=== PATIENT | male | born 1955 | race Caucasian/White ===

== ENCOUNTER 2017-08-01 23:09 | Emergency (ER) | payer OTHER ==
[~2017-08-01] VITALS: Ht 175.3 cm; Wt 54.4 kg
[2017-08-01 23:10] VITALS: BP_SYST 142
[2017-08-01] MEDS ORDERED: NACL 0.9% 1,000 ML IV ONE (23:30)
[2017-08-01 23:49] LABS: HEMATOCRIT 36.1 % (36-54); HEMOGLOBIN 12.3 g/dL (14.0-18.0); MEAN CORPUSCULAR HEMOGLOBIN 30 pg (27-31); MEAN CORPUSCULAR HGB CONC 34 % (32-36); MEAN CORPUSCULAR VOLUME 88 fL (79.0-98.0); RED CELL DISTRIBUTION WIDTH 13.4 % (9.0-15.0)
[2017-08-02 00:02] LABS: CALCIUM 8.6 mg/dL (8.4-11.0); CREATININE 1.71 mg/dL (0.55-1.30); POTASSIUM 3.8 mmol/L (3.5-5.1)
[2017-08-02 00:03] LABS: INR 1.1 (0.80-1.20); PROTHROMBIN TIME 11.5 SECS (9.5-12.5)
[2017-08-02 00:36] LABS: TOTAL BILIRUBIN 4.1 mg/dL (0.0-1.0)
[2017-08-02 00:37] LABS: FREE T4 (FREE THYROXINE) 0.6 ng/dL (0.6-1.6)
[2017-08-02 00:50] LABS: PLATELET COUNT (AUTO) 232 K/uL (130-430)
[2017-08-02] MEDS ORDERED: ALBUTEROL SULFATE 0.083% 2.5 MG/3 ML VIAL.NEB INH ONE (01:00)
[2017-08-02] MEDS ORDERED: ACETAMINOPHEN 500 MG TABLET PO ONE (01:00)
[2017-08-02 01:06] LABS: BASOPHILS % (MANUAL) 0 % (0-2); EOSINOPHILS % (MANUAL) 0 % (0-7); LYMPHOCYTES % (MANUAL) 5 % (20-46); MONOCYTES % (MANUAL) 3 % (0-11)
[2017-08-02] MEDS ORDERED: POTASSIUM CHLORIDE 20 MEQ TAB.PRT.SR PO ONE (01:15)
[2017-08-02 01:41] LABS: BILIRUBIN,URINE 2+ (NEGATIVE); BLOOD, URINE 3+ (NEGATIVE); CLARITY/URINE SL CLOUDY (CLEAR); COLOR,URINE YELLOW (YELLOW); GLUCOSE,URINE NEGATIVE (NEGATIVE); KETONES,URINE NEGATIVE (NEGATIVE); LEUKOCYTE ESTERASE ,URINE NEGATIVE (NEGATIVE); NITRITE, URINE NEGATIVE (NEGATIVE); PH,URINE 5.5 (5.0-8.0); PROTEIN URINE 2+ (NEGATIVE)
[2017-08-02 01:53] LABS: BARBITURATE, URINE NEGATIVE (NEG <=200); BENZODIAZEPINE, URINE NEGATIVE (NEG <=150); CANNABINOID, URINE NEGATIVE (NEG <=50); COCAINE, URINE NEGATIVE (NEG <=150); METHAMPHETAMINES SCREEN,URINE NEGATIVE (NEG <=500); OPIATE, URINE NEGATIVE (NEG <=100); PHENCYCLIDINE SCREEN,URINE NEGATIVE (NEG <=25); UR TRICYCLIC ANTIDEPRESSANTS NEGATIVE (NEG <=300); URINE METHADONE NEGATIVE (NEG <=200); URINE OXYCODONE SCREEN NEGATIVE (NEG <=100); URINE PROPOXYPHENE SCREEN NEGATIVE (NEG <=300)
[2017-08-02 01:54] LABS: URINE AMPHETAMINE POSITIVE (NEG <=500)
[2017-08-02 02:03] LABS: BACTERIA,URINE MODERATE /HPF (None Seen); WBC,URINE 0-3 /HPF (0-3)
[2017-08-02 02:04] LABS: FINE GRANULAR CASTS,URINE 0-10 /LPF (None Seen); URINE AMORPHOUS URATE 1+ /HPF (None Seen)
[2017-08-02 04:58] VITALS: BP_SYST 101
== END 2017-08-02 04:58 | disposition short-term general hospital (02) ==
LOC: SED 23:09
DX: J18.9 Pneumonia, unspecified organism (principal); A53.9 Syphilis, unspecified
CPT/HCPCS: 36415; 36600; 71045; 74018; 80053; 80307; 81000; 82140; 82803; 83605; 83880; 84439; 84484; 85007; 85027; 85610; 87040; 87186; 93005; 94640; 96361; 96365; 99285; G0482; J1956; J7030; J7613; 85025